=== PATIENT | female | born 1990 | race Two or more races ===

== ENCOUNTER 2025-03-02 10:28 | Emergency (ER) | payer OTHER ==
[~2025-03-02] VITALS: Ht 165.1 cm; Wt 94.8 kg
[2025-03-02] MEDS ORDERED: LEXAPRO5 MG (11:00)
[2025-03-02] MEDS ORDERED: CLONAZEPAM1 M1 PO (11:00)
[2025-03-02] MEDS ORDERED: FAMOTIDINE/PF 20 MG in 0.9 % SODIUM CHLORIDE 8 ML IV PUSH STA (11:44)
[2025-03-02] MEDS ORDERED: ONDANSETRON HCL 2 MG/ML VIAL IV ONE (11:45)
[2025-03-02] MEDS ORDERED: 0.9 % SODIUM CHLORIDE 1,000 ML IV SCH (11:45)
[2025-03-02 12:38] LABS: BASO % 0.4 % (0.1-1.2); EOS # 0.13 (0.04-0.54); EOS % 1.4 % (0.7-7.0); LYMPH # 2.12 (1.18-3.74); LYMPH % 22.6 % (19.3-53.1); MEAN PLATELET VOLUME 8.80 fl (9.4-12.4); MONO # 0.53 (0.24-0.82); MONO % 5.6 % (4.7-12.5); NEUT # 6.50 (1.56-6.13); NEUT % 69.1 % (34.0-71.1); RED CELL DISTRIBUTION WIDTH 13.4 % (11.6-14.4)
[2025-03-02 12:40] LABS: ALT/SGPT 16.0 U/L (12-78); AST/SGOT 12.0 U/L (15-37); BILIRUBIN TOTAL 0.44 mg/dL (0.3-1.2); BUN CREA RATIO 20.0 (7.0-25.0); CREATININE SERUM 0.69 mg/dL (0.55-1.02); GFR 96.27; GLOBULINA 4.2 G/DL (2.4-3.5); GLUCOSE FASTING 98.0 mg/dL (65-100); OSMOLALITY SERUM 276.0 MOSM/KG (275-295)
[2025-03-02 13:04] LABS: URINE APPEARANCE Cloudy; URINE BILIRRUBIN Negative (NEGATIVE); URINE BLOOD Negative; URINE COLOR Yellow; URINE GLUCOSE Negative (NEGATIVE); URINE LEUKOCYTE Trace; URINE NITRATE Negative; URINE PROTEIN Negative (NEGATIVE); URINE UROBILINOGEN 0.2 E.U./dl
[2025-03-02 13:09] LABS: URINE BACTERIA 3024.0 uL (0.0-1933); URINE EPITHELIAL CELLS 133.0 uL (0.0-38.8); URINE WBC 8.3 uL (0.0-23.2)
[2025-03-02 13:42] LABS: URINE CAST 1.02 uL (0.0-1.40); URINE KETONE 40 (NEGATIVE); URINE RBC 0.4 uL (0.0-20.8)
== END 2025-03-02 18:37 | disposition home or self-care (01) ==
LOC: ER 10:36
PROVIDERS: General Practice
DX: R42 Dizziness and giddiness (principal)
CPT/HCPCS: 70551; 70552